=== PATIENT | male | born 1985 | race Caucasian/White ===

== ENCOUNTER 2016-11-04 18:00 | Inpatient (IN) | payer OTHER ==
[~2016-11-04] VITALS: Ht 182.9 cm; Wt 106.6 kg
--- NOTE | ~2016-11-04 | HP ---
Unit #: [id number] #: [id number] Patient: KRISTAL PEDRAZA [id number] [place] [address] [id number] MR#: [id number] NAME: KRISTAL PEDRAZA. ROOM: [facility] Age: 31 Sex: M Admission Date: 11/04/2016 : 1985 Attending Physician: Zaina Harmon M.D. Admitting Physician: Zaina Harmon M.D. Primary Care Physician: Magalis Mendes A.P.R.N. HISTORY AND PHYSICAL HISTORY OF PRESENT ILLNESS Kristal is a 31-year-old male admitted on 11/04/[address] [place] [address] for depression and suicidal ideation. PAST MEDICAL HISTORY 1. Hypertension. 2. Chronic back pain. 3. Lupus. 4. GERD. PAST SURGICAL HISTORY None. ALLERGIES No known drug allergies. SOCIAL HISTORY Smokes 2 packs of cigarettes daily. Denies alcohol use. Does report a history of illegal drug use. FAMILY HISTORY Noncontributory. REVIEW OF SYSTEMS CONSTITUTIONAL: No fever or chills. HEENT: Denies any sore throat, ear pain or runny nose. CARDIOVASCULAR: Denies chest pain, irregular heart rhythm or palpitations. CHEST: Denies shortness of breath or cough. No hemoptysis. GASTROINTESTINAL: Denies nausea, vomiting, diarrhea or chronic constipation. ENDOCRINE: Denies history of increased thirst or urination. No recent significant weight loss or gain. GENITOURINARY: Denies dysuria, frequency, or hematuria. SKIN: Denies any rashes. HEMATOLOGIC: Denies history of increased bleeding or bruising. MUSCULOSKELETAL: Denies any hot, swollen joints. No generalized muscle pain. NEUROLOGIC: Denies problems with vision or speech. No frequent, severe headaches. No numbness, tingling or weakness in any extremities. Denies loss of bladder or bowel control. CURRENT MEDICATIONS 1. Gabapentin. Unit #: [id number] #: [id number] Patient: KRISTAL PEDRAZA 2. Seroquel. 3. Paroxetine. 4. Diazepam. 5. Risperdal. PHYSICAL EXAMINATION GENERAL: Alert, oriented, in no acute distress. VITAL SIGNS: Blood pressure 138/82, heart rate 105, respirations 18, temperature 98.6. HEIGHT: 6 feet 0. WEIGHT: 235 pounds. SKIN: Warm and dry without rash or lesion. HEENT: Normocephalic. TMs not viewed. Oral and nasal passages clear. Conjunctivae clear. PERRLA. EOMs intact. NECK: Supple without lymphadenopathy or thyromegaly. HEART: Regular rate and rhythm without murmur. LUNGS: Clear. ABDOMEN: Soft, nontender, without masses or hepatosplenomegaly. : Not done. EXTREMITIES: No evidence of cyanosis, clubbing or edema. Moves all without focal deficit. NEUROLOGICAL: Grossly within normal limits. Cranial Nerves: II: Visual win are intact. III, IV AND : Extraocular movements are intact. Pupils are equal, round and reactive to light. V: Facial sensation is grossly normal. VII: Facial movements and expression are normal. VIII: Auditory acuity grossly intact. IX, X: Uvula is midline. Phonation is normal. XI: Patient shrugs shoulders and turns head normally. XII: Tongue protrudes in the midline. Sensory and Motor Function: Sensory and motor sensation is grossly normal. Motor: moves all extremities well. Coordination: Gait is normal. Deep Tendon Reflexes: Intact. IMPRESSION 1. Psychiatric admission. 2. Hypertension. 3. Lupus. 4. Gastroesophageal reflux disease. 5. Chronic back pain. RECOMMENDATIONS PSYCHIATRIC: Per psychiatrist. MEDICAL: No contraindication to participate in facility's activities. MEDICAL PROGNOSIS Good. MEDICAL CONDITION Stable. Dictated by... Michael DunnPRajRTu Unit #: [id number] #: [id number] Patient: KRISTAL PEDRAZA Aditi SEXTON/abimael TD: 11/05/2016 20:51 JOB #: [id number] HISTORY AND PHYSICAL Page 1 of 1 X JESSE AZAR APRN HISTORY AND PHYSICAL
--- NOTE | ~2016-11-04 | PN ---
Unit #: [id number] #: [id number] Patient: KRISTAL SORIANO [id number] [facility] [address] [place] [address] [id number] MR#: [id number] NAME: KRISTAL SORIANO. ROOM: [facility] Age: 31 Sex: M Admission Date: 11/04/2016 : 1985 Attending Physician: Zaina Harmon M.D. Admitting Physician: Zaina Harmon M.D. Primary Care Physician: Amarilis Blount PROGRESS NOTES DATE OF SERVICE: 11/08/2016 SUBJECTIVE Mr. Soriano is a 32-year-old white male, who was seen today and chart was reviewed and case was discussed with the staff. He has been anxious, withdrawn and reports improvement in his depression symptoms and has been calm and cooperative with treatment recommendations and has been taking the medications and tolerating them fairly well with no reported side effects. MENTAL STATUS EXAMINATION Young white male who was casually dressed with fair personal hygiene, and appears to be in no acute distress or discomfort. He was awake and alert on interaction with intact orientation. His mood was anxious with a congruent affect. He denies any suicidal or homicidal ideations and also denies any auditory or visual hallucinations. His insight and judgment remain slightly impaired. TREATMENT PLAN 1. We will continue his current medications and treatment protocol. We will monitor his response to medications and make further adjustments as needed. 2. We will continue to follow up. Dictated by... Krystian Guillory/vanessa TD: 11/08/2016 23:26 JOB #: [id number] Unit #: [id number] #: [id number] Patient: KRISTAL SORIANO PEASEVERINO PROGRESS NOTES Page 1 of 1 X Zaina Harmon MD PROGRESS NOTE
--- NOTE | ~2016-11-04 | PA ---
Unit #: [id number] #: [id number] [facility] [id number] [facility] [address] [place] [address] [id number] MR#: [id number] NAME: KRISTAL SORIANO. ROOM: P266 Age: 31 Sex: M Admission Date: 11/04/2016 : 1985 Date of Assessment: 11/05/2016 Attending Physician: Zaina Harmon M.D. Admitting Physician: Zaina Harmon M.D. Primary Care Physician: Magalis Mendes A.P.R.N. PSYCHIATRIC ASSESSMENT DATE OF SERVICE 11/05/2016. IDENTIFYING DATA Mr. Soriano is a 31-year-old, single, white male, who is a resident of [place], [place], and is known to us from previous encounter as he is currently active under my care in the intensive outpatient treatment program and was stepped up to the inpatient unit. CHIEF COMPLAINT "I'm honestly feeling a bit suicidal." HISTORY OF PRESENT ILLNESS Mr. Soriano is a 31-year-old white male with a history of mood disorder, who was stepped up to the inpatient unit after his therapist called me stating that the patient has been decompensating in the groups and has been reporting increasing depression, has been talking about grief and loss, and "my brother a month and a week and half ago when he was 14. I've lupus and I'm honestly feeling a bit suicidal, I need to be admitted." The patient states that he understands he feels suicidal and that suicide has been constantly playing on his mind. He was seen to be exhibiting increasing depression, anxiety, restlessness, and was unable to contract for safety and as such, recommendation for inpatient level of care for safety and stabilization was made and patient was transferred to us. 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 PAST PSYCHIATRIC HISTORY The patient reports history of inpatient psychiatric hospitalization at [facility] [place], at [facility], and has done chemical dependency treatment program at [facility] in the past as well and is currently active in the intensive outpatient treatment program at [facility] and review of the medical records indicate that he has been diagnosed and treated for mood disorder and is currently on a combination of Seroquel, Paxil and Valium. PAST MEDICAL HISTORY The patient's medical history is significant for lupus. Unit #: [id number] #: [id number] Patient: KRISTAL SORIANO ALLERGIES No known medication allergies. PERSONAL AND SOCIAL HISTORY A 31-year-old white male, who reports that he is single, unemployed, and lives at home with his parents and has fairly decent social support system. MENTAL STATUS EXAMINATION Young white male, who was casually dressed with fair personal hygiene, appears to be in no acute distress or discomfort. He was awake and alert on interaction with intact orientation to time, place, and person. His mood was anxious with a congruent affect. His speech was slow and restricted in content. His thought processes were disorganized with some looseness of associations and suicidal ideations. His insight and judgment remain significantly impaired. DIAGNOSTIC IMPRESSION Psychiatric: Major depressive disorder, recurrent, moderate, without psychotic features. Medical: Lupus. Stressors: Moderate psychosocial stressors. TREATMENT PLAN 1. The patient has presented with a history of mood disorder, and has been decompensating and will need inpatient hospitalization for safety and stabilization. We will start him back on his home medications. We will adjust the medications and monitor response. 2. Supportive therapy was provided to the patient. 3. Safe, structured, and nourishing environment will be reported. ESTIMATED LENGTH OF STAY 5 to 7 days. ABILITY TO HELP SELF Limited. WILLINGNESS TO HELP SELF The patient appears to be willing to help self. STRENGTHS 1. Communicative. 2. Cooperative. PROBLEMS 1. Chronic dysphoric symptoms. 2. Poor social support system. DISCHARGE CRITERIA This will be contingent upon the patient's ability to show resolution of his depression and anxiety and his ability to stay safe to himself, particularly after discharge from the hospital. Dictated by... aZina Harmon M.D. Unit #: [id number] #: [id number] Patient: KRISTAL SORIANO IAA/modl TD: 11/05/2016 08:00 JOB #: [id number] PSYCHIATRIC ASSESSMENT Page 1 of 1 X Zaina Harmon MD PSYCHIATRIC ASSESSMENT
--- NOTE | ~2016-11-04 | DS ---
Unit #: [id number] #: [id number] Patient: [facility] [id number] [facility] [address] [place] [address] [id number] I MR#: [id number] NAME: KRISTAL SORIANO. ROOM: [facility] Age: 31 Sex: M Admission Date: 11/04/2016 : 1985 Discharge Date: 11/09/2016 Attending Physician: Zaina Harmon M.D. Primary Care Physician: Magalis Mendes A.P.R.N. DISCHARGE SUMMARY IDENTIFYING DATA Mr. Soriano is a 31-year-old single white male, who is a resident of [place], [place] and is known to us from previous encounter, was stepped up to the inpatient unit from the intensive outpatient treatment program. DISCHARGE DIAGNOSES Psychiatric: Major depressive disorder, recurrent, moderate, without psychotic features; generalized anxiety disorder. Medical: Lupus. Stressors: Moderate psychosocial stressors. HISTORY OF PRESENT ILLNESS Please see initial psychiatric evaluation for details. PAST PSYCHIATRIC HISTORY Please see initial psychiatric evaluation for details. PAST MEDICAL HISTORY Please see initial psychiatric evaluation for details. HOSPITAL COURSE The patient was admitted to the adult psychiatric unit at [facility] [place] and was oriented to the hospital environment. Routine p.r.n. medications were initiated and he was started back on his home medications and was closely monitored. He was taking medications regularly and was tolerating them fairly well and was able to show a decent and therapeutic response and was willing to continue treatment on an outpatient basis and as such, it was decided that he will be kept on his current medications and will be discharged home and continue treatment on an outpatient basis. DISCHARGE MEDICATIONS Paxil 40 mg b.i.d. for depression, Valium 5 mg t.i.d. for anxiety, Seroquel 300 mg at bedtime for mood disorder, and Neurontin 1200 mg b.i.d. for lupus. DISCHARGE CONDITION Stable. PROGNOSIS Fair. Dictated by... Unit #: [id number] #: [id number] Patient: KRISTAL SORIANO Zaina Harmon M.D. IAA/modl TD: 11/09/2016 20:02 JOB #: [id number] DISCHARGE SUMMARY Page 1 of 1 X Zaina Harmon MD DISCHARGE SUMMARY
--- NOTE | ~2016-11-04 | TN ---
Unit #: [id number] #: [id number] Patient: KRISTAL [facility]ORIANO [id number] [facility] [place] [address] [id number] MR#: [id number] NAME: KRISTAL SORIANO. ROOM: 66 Age: 31 Sex: M Admission Date: 11/04/2016 : 1985 Discharge Date: 11/09/2016 Attending Physician: Zaina Harmon M.D. Primary Care Physician: Magalis Mendes A.P.R.N. LOC TRANSFER NOTE DATE OF SERVICE: 11/18/2016 HISTORY OF PRESENT ILLNESS Mr. Soriano is a 31-year-old single white male who was stepped down to the outpatient treatment program from [facility] was hospitalized under my care from 11/04/2016 through 11/09/2016 and was taken to the hospital with increasing depression and suicidal ideation, and was stabilized on a combination of Seroquel, Paxil, and Valium and was stepped down to the outpatient treatment program. On evaluation by me today, the patient reports doing fairly well and that he left the hospital, went back home to his family and has been taking medications and tolerating them fairly well and denies any decompensation on his mood and also denies any suicidal or homicidal ideations. SUBSTANCE ABUSE HISTORY The patient denies any alcohol or drug abuse. PAST PSYCHIATRIC HISTORY The patient has had history of inpatient and outpatient psychiatric treatment, and has been diagnosed and treated for mood disorder and is currently on a combination of Neurontin, Seroquel, and Valium, and Paxil. PAST MEDICAL HISTORY No acute or chronic medical illnesses. ALLERGIES No known medication allergies. PERSONAL AND SOCIAL HISTORY A 31-year-old single, white male who reports that he lives at home with his family and has fairly decent social support system. MENTAL STATUS EXAMINATION Young white male who was casually dressed with fair personal hygiene, appears to be in no acute distress or discomfort. He was awake and alert on interaction with intact orientation to time, place, and person. His mood was anxious and depressed with a congruent affect. His speech was slow and goal directed. He denies any suicidal or homicidal ideations, and also denies any auditory or visual hallucinations. His insight and judgment remain slightly impaired. DIAGNOSTIC IMPRESSION Unit #: [id number] #: [id number] Patient: KRISTAL SORIANO Psychiatric: Major depressive disorder, recurrent, moderate, without psychotic features; generalized anxiety disorder. Medical: None. Stressors: Moderate psychosocial stressors. TREATMENT PLAN 1. The patient has presented with history of mood disorder. We will recommend enrolling him into the outpatient treatment program and maintaining him on his current medications. We will monitor his response and make further adjustments as needed. 2. Supportive therapy was provided to the patient. ESTIMATED LENGTH OF STAY 14 to 21 days. ABILITY TO HELP SELF Limited. WILLINGNESS TO HELP SELF The patient appears to be willing to help self. STRENGTHS 1. Communicative. 2. Cooperative. PROBLEMS 1. Chronic dysphoric symptoms. 2. Poor social support system. DISCHARGE CRITERIA This will be contingent upon the patient's ability to show resolution of his depression and anxiety and his ability to stay safe to himself, particularly after discharge from the program. Dictated by... Krystian Guillory/vanessa TD: 11/18/2016 12:56 JOB #: [id number] LOC TRANSFER NOTE Page 1 of 1 X Zaina Harmon MD X LOC TRANSFER NOTE
--- NOTE | ~2016-11-04 | PN ---
Unit #: [id number] #: [id number] Patient: KRISTAL SORIANO [id number] [facility] [address] [place] [address] [id number] MR#: [id number] NAME: KRISTAL SORIANO. ROOM: [facility] Age: 31 Sex: M Admission Date: 11/04/2016 : 1985 Attending Physician: Zaina Haromn M.D. Admitting Physician: Zaina Harmon M.D. Primary Care Physician: Amarilis Blount PROGRESS NOTES DATE 11/07/2016 DISCUSSION Mr. Soriano is a 31-year-old, white male who was seen today and chart was reviewed and case was discussed with the staff. He has been anxious, withdrawn though has not shown any agitation, irritability or behavioral problems and has been cooperative with the treatment recommendations. He has been taking the medication and tolerating them fairly well with no reported side effects. MENTAL STATUS EXAM Young white male who was casually dressed with fair personal hygiene, appears to be in no acute distress or discomfort. He was awake and alert on interaction with intact orientation. His mood was anxious with congruent affect. He denies any suicidal or homicidal ideation. His insight and judgement remains slightly impaired. TREATMENT PLAN 1. We will continue him on his current treatment protocol. We will monitor his response to the medication and make further adjustments as needed. 2. We will continue to follow up. Dictated by... Krystian Guillory/joseph TD: 11/09/2016 04:18 JOB #: [id number] Unit #: [id number] #: [id number] Patient: KRISTAL SORIANO PROGRESS NOTES Page 1 of 1 X Zaina Harmon MD X PROGRESS NOTE
--- NOTE | ~2016-11-04 | PN ---
Unit #: [id number] #: [id number] Patient: KRISTAL SORIANO [id number] [facility] [address] [place] [address] [id number] MR#: [id number] NAME: KRISTAL SORIANO. ROOM: [facility] Age: 31 Sex: M Admission Date: 11/04/2016 : 1985 Attending Physician: Zaina Harmon M.D. Admitting Physician: Zaina Harmon M.D. Primary Care Physician: Amarilis Blount PROGRESS NOTES DATE November 06, 2016 DISCUSSION Mr. Soriano is a 31-year-old white male, who was seen today and chart was reviewed and the case was discussed with the staff. He has been anxious, withdrawn, reports persistent depressive symptoms. Meanwhile, he has been taking the medications and tolerating them fairly well with no reported side effects. MENTAL STATUS EXAMINATION Young white male, who was casually dressed with fair personal hygiene and appears to be in no acute distress or discomfort. He was awake and alert with intact orientation. His mood is anxious with a congruent affect. He denies any suicidal or homicidal ideations. His insight and judgment remain slightly impaired. TREATMENT PLAN 1. We will continue him on his current medications and treatment protocol, and will monitor his response to the medications, and make further adjustments as needed. 2. We will continue to followup. Dictated by... Krystian Guillory/ben TD: 11/08/2016 10:52 JOB #: [id number] Unit #: [id number] #: [id number] Patient: KRISTAL SORIANO PROGRESS NOTES Page 1 of 1 X Zaina Harmon MD X PROGRESS NOTE
[2016-11-05 09:38] LABS: BASOPHIL# 0.1 X10e3 (0-0.3); BASOPHIL% 1.1 % (0-2.5); EOSINOPHIL# 0.6 X10e3 (0-0.7); EOSINOPHIL% 10.4 % (0.0-7.0); HEMATOCRIT 44.4 % (38.0-50.0); HEMOGLOBIN 14.6 gm/dL (13.0-16.0); LYMPHOCYTE# 2.4 X10e3 (1.0-3.5); LYMPHOCYTE% 38.6 % (17.0-45.0); MEAN CELL VOLUME 94.5 FL (83-96); MEAN CORPUSCULAR HEMOGLOBIN 31.2 PG (28-34); MONOCYTE# 0.5 X10e3 (0-1.0); MONOCYTE% 7.5 % (3.0-12.0); NEUTROPHIL# 2.6 X10e3 (1.5-7.1); NEUTROPHIL% 42.4 % (40-75); PLATELET COUNT 189 X10e3 (140-420); RED CELL DISTRIBUTION WIDTH 13.6 % (11.0-15.5); WHITE BLOOD COUNT 6.1 X10e3 (4.0-10.5)
[2016-11-05 09:39] LABS: URINE APPEARANCE CLEAR; URINE BILIRUBIN NEG (NEG); URINE BLOOD NEG (NEG); URINE COLOR YELLOW; URINE GLUCOSE NEG (NEG); URINE KETONE TRACE (NEG); URINE LEUKOCYTE ESTERASE NEG (NEG); URINE NITRATE NEG (NEG); URINE PROTEIN NEG (NEG); URINE SPECIFIC GRAVITY 1.019 (1.003-1.035); URINE UROBILINOGEN 0.2 MG/DL (NEG)
[2016-11-05 09:50] LABS: DIFF IND NO
[2016-11-05 09:56] LABS: ALBUMIN SERUM 3.5 g/dL (3.5-5.0); BILIRUBIN,TOTAL 0.3 mg/dL (0.2-2.0); BUN/CREATININE RATIO 9.09; CALCIUM SERUM 8.6 mg/dL (8.4-10.2); CREATININE SERUM 1.1 mg/dL (0.6-1.4); GLOM FILT RATE Estimated 89.6 mL/min (>60); POTASSIUM 4.6 mmol/L (3.5-5.1); PROTEIN TOTAL SERUM 6.2 g/dL (6.0-8.3)
[2016-11-05 10:51] LABS: AMPHETAMINE NEG (NEG); BARBITURATES NEG (NEG); BENZODIAZEPINES POS (NEG); COCAINE NEG (NEG); MARIJUANA NEG (NEG); OPIATES NEG (NEG); TRICYCLIC ANTIDEPRESSANTS POS (NEG); U METHADONE NEG (NEG)
== END 2016-11-09 10:00 | disposition home or self-care (01) | DRG 885 ==
LOC: P2L 20:21
PROVIDERS: Psychiatry & Neurology Psychiatry
DX: F33.1 Major depressive disorder, recurrent, moderate (principal); M32.9 Systemic lupus erythematosus, unspecified; K21.9 Gastro-esophageal reflux disease without esophagitis; I10 Essential (primary) hypertension; M54.9 Dorsalgia, unspecified; G89.29 Other chronic pain; F17.210 Nicotine dependence, cigarettes, uncomplicated; F41.1 Generalized anxiety disorder
CPT/HCPCS: 80053; 80307; 81003; 85025